=== PATIENT | female | born 1990 | race Caucasian/White ===

== ENCOUNTER 2017-04-08 15:23 | Emergency (ER) | payer OTHER ==
[~2017-04-08] VITALS: Ht 162.6 cm; Wt 59.0 kg
[2017-04-08 15:39] VITALS: BP 124/88
--- NOTE | 2017-04-08 15:48 | ED GENERAL ADULT ---
History of Present Illness General Chief Complaint: General Adult Stated Complaint: SIB URGENT CARE FOR ?DEHYDRATION, ?MED REACTI Vital Signs & Intake/Output Vital Signs & Intake/Output Vital Signs Date Time Temp Pulse Resp B/P B/P Pulse O2 O2 Flow FiO2 Mean Ox Delivery Rate 04/08 1539 97.6 88 18 124/88 95 Room Air Allergies Coded Allergies: NO KNOWN ALLERGIES (08/05/11) Triage Note: PT STATES SHE WAS SENT IN FROM WALK IN FOR POSSIBLE DEHYDRATION. PT STATES SHE TOOK A PREWORKOUT EXCERCISED A LITTLE AND THEN FELT SICK PT REPORTS THAT SHE HAS NOT STOPPED VOMITING SINCE. : No Patient currently breastfeeds: No Past History Travel History Traveled to [place] past 21 day No Psychosocial History What is your primary language Icelandic Tobacco Use: Never used ETOH Use: occasional use Illicit Drug Use: denies illicit drug use Progress Differential Diagnoses I considered the following diagnoses in my evaluation of the patient: Plan of Care: Orders Procedure Date/time Status URINE 04/08 1540 Active URINALYSIS 04/08 1540 Active COMPREHENSIVE METABOLIC PANEL 04/08 1540 Active CBC WITHOUT DIFFERENTIAL 04/08 1540 Active Laboratory Tests 04/08/17 1545: Sodium Pending, Potassium Pending, Chloride Pending, Carbon Dioxide Pending, Anion Gap Pending, BUN Pending, Creatinine Pending, BUN/Creatinine Ratio Pending , Glucose Pending, Calcium Pending, Total Bilirubin Pending, AST Pending, ALT Pending, Alkaline Phosphatase Pending, Total Protein Pending, Albumin Pending, Globulin Pending, Albumin/Globulin Ratio Pending, CBC w Diff Pending, WBC Pending, RBC Pending, Hgb Pending, Hct Pending, MCV Pending, MCH Pending, MCHC Pending, RDW Pending, Plt Count Pending, MPV Pending Comments: 04/08/2017 3:47:16 PM patient not in waiting room. Departure Departure Condition: Stable Referrals: Patient Has No Primary Care Dr Departure Forms: Customer Survey General Discharge Information
[2017-04-08 15:50] LABS: ABSOLUTE BASOPHIL COUNT 0 /CUMM (0.0-0.2); ABSOLUTE EOSINOPHIL COUNT 0.1 /CUMM (0.0-0.7); ABSOLUTE GRANULOCYTE CT 10.8 /CUMM (1.4-6.5); ABSOLUTE LYMPH COUNT 0.7 /CUMM (1.2-3.4); ABSOLUTE MONOCYTE COUNT 0.6 /CUMM (0.10-0.60); BASOPHIL % 0.1 % (0.0-2.0); EOSINOPHIL % 0.5 % (0-5); GRANULOCYTE % 89.2 % (42.2-75.2); HEMATOCRIT 43.9 % (37-47); MEAN CORPUSCULAR HGB 28.3 PG (27.0-31.0); MEAN CORPUSCULAR HGB CONC 33.2 G/DL (33.0-37.0); PLATELET COUNT 230 /CUMM (130-400); RBC DISTRIBUTION WIDTH 13.1 % (11.5-14.5); RED BLOOD CELL CT 5.17 /CUMM (4.20-5.40); WHITE BLOOD CELL COUNT 12.1 /CUMM (4.8-10.8)
== END 2017-04-08 16:19 | disposition admitted as inpatient to this hospital (09) ==
LOC: ERH 15:23
PROVIDERS: Emergency Medicine
DX: R11.10 Vomiting, unspecified (principal)
CPT/HCPCS: 81025; 99281